=== PATIENT | female | born 1940 | race Caucasian/White ===

== ENCOUNTER 2017-06-13 13:35 | Outpatient (CLI) | payer MEDICARE, BC | END 2017-06-13 13:36 | disposition home or self-care (01) | LOC: BICMAMMO 13:35 | PROVIDERS: ATTEND Internal Medicine | DX: Z12.31 Encounter for screening mammogram for malignant neoplasm of breast (principal); Z80.3 Family history of malignant neoplasm of breast | CPT/HCPCS: 77063; 77067 ==

== ENCOUNTER 2018-07-12 10:39 | Outpatient (CLI) | payer MEDICARE, BC ==
--- NOTE | 2018-07-12 11:16 | MMO ---
Bilateral MAMMO Bilat Screen [facility]. CLINICAL HISTORY: Patient is 77 years old and is seen for screening. The patient has the following family history of breast cancer: paternal grandmother. The patient has no personal history of cancer. The patient has a history of right needle biopsy at age 30 - benign - mastatits. VIEWS: The views performed were: bilateral craniocaudal with tomosynthesis and bilateral mediolateral oblique with tomosynthesis. FILMS COMPARED: The present examination has been compared to prior imaging studies performed at [facility] on 11/29/2014, 02/05/2016 and 06/13/2017, and at [facility] on 12/14/2012. MAMMOGRAM FINDINGS: There are scattered fibroglandular densities. There are stable benign appearing calcifications seen in both breasts. There are also vascular calcifications. There are no suspicious masses, suspicious calcifications, or new areas of architectural distortion. IMPRESSION: THERE IS NO MAMMOGRAPHIC EVIDENCE OF MALIGNANCY. A ROUTINE FOLLOW-UP MAMMOGRAM IN 1 YEAR IS RECOMMENDED. THE RESULTS OF THIS EXAM WERE SENT TO THE PATIENT. ACR BI-RADS Category 2 - Benign finding MAMMOGRAPHY NOTE: 1. A negative mammogram report should not delay a biopsy if a dominant of clinically suspicious mass is present. 2. Approximately 10% to 15% of breast cancers are not detected by mammography. 3. Adenosis and dense breasts may obscure an underlying neoplasm.
== END 2018-07-12 10:40 | disposition home or self-care (01) ==
LOC: BICMAMMO 10:39
PROVIDERS: ATTEND Internal Medicine
DX: Z12.31 Encounter for screening mammogram for malignant neoplasm of breast (principal); Z80.3 Family history of malignant neoplasm of breast
CPT/HCPCS: 77063; 77067

== ENCOUNTER 2018-08-30 15:20 | Outpatient (CLI) | payer MEDICARE, BC ==
--- NOTE | 2018-08-30 15:59 | RAD ---
TWO VIEW CHEST: 08/30/18 INDICATION: Cough. The lungs are well aerated. There is density in the medial left lung base seen through the cardiac si lhouette on the frontal view. This is not appreciated on the lateral projection. However, I cannot ex clude left basilar infiltrate or atelectasis on the frontal projection at this location. This also ov erlies the descending aorta and may be artifactual. The lungs are otherwise clear. Vasculature normal. Heart size normal. IMPRESSION: Question density in the medial left lung base seen through the cardiac silhouette. This is not confir med on the lateral projection. Recommend short term follow-up. Alternatively a chest CT could be perf ormed if patient's clinical findings and symptoms are of concern. POS: OFF
== END 2018-08-30 15:21 | disposition home or self-care (01) ==
LOC: BICRAD 15:20
PROVIDERS: ATTEND Internal Medicine
DX: R05 Cough (principal)
CPT/HCPCS: 71046

== ENCOUNTER 2018-10-11 12:23 | Outpatient (CLI) | payer MEDICARE, BC ==
--- NOTE | 2018-10-11 13:31 | CT ---
CT CHEST WITH CONTRAST CLINICAL INDICATION: Productive cough for 3 months. Family history of cancer. Chest x-ray abnormality. COMPARISON: Chest x-ray on 08/30/2018 FINDINGS: Aorta: Vascular calcifications are seen, but the thoracic aorta is normal in caliber without evidence of an aortic dissection. Lungs: There is a pleural-based nodular density seen at the lateral aspect left upper lobe with great est dimension of 5 mm as measured on coronal images. No additional discrete pulmonary nodule or mass is seen. There are linear interstitial densities seen at the left lung base which may be related to mild chronic lung changes. There is no consolidation seen within the lungs bilaterally. Etiology for the density at the medial left lung base on chest x-ray is not evident on this exam, and findings may have been related to superimposition of structures on that exam or possibly related to infiltrate which is now resolved. Mediastinum: There is no evidence of lymphadenopathy. Thyroid gland: A 9 mm hypodense nodule is seen in the right lobe of the thyroid gland with additional tiny hypodense nodule in the thyroid isthmus. Osseous structures: A hemangioma is seen in a midthoracic vertebral body. There are mild degenerative changes in the thoracic spine. No additional lytic or sclerotic osseous lesion is seen. Chest wall: No abnormality visualized. Upper abdomen: Within normal limits for phase of imaging. IMPRESSION: 1. Nodular density with associated pleural thickening seen in the posterolateral left upper lobe. Thi s may be related to pleural and parenchymal scarring, but follow-up CT thorax in 6 months is recommended for further evaluation. 2. There is no abnormality seen in the left lung base to correspond to prior chest x-ray abnormality. No mass or pleural effusion is identified. 3. Linear densities seen at the left lung base which may be related to mild chronic interstitial lung changes. 4. Hypodense nodule right lobe of thyroid gland. Nonemergent thyroid ultrasound is recommended for fu rther evaluation.
== END 2018-10-11 12:24 | disposition home or self-care (01) ==
LOC: CT 12:23
PROVIDERS: ATTEND Internal Medicine Critical Care Medicine
DX: J45.909 Unspecified asthma, uncomplicated (principal); R05 Cough; R91.1 Solitary pulmonary nodule; J98.4 Other disorders of lung; J92.9 Pleural plaque without asbestos; E04.1 Nontoxic single thyroid nodule
CPT/HCPCS: 71260

== ENCOUNTER 2019-10-24 13:11 | Outpatient (CLI) | payer MEDICARE, BC ==
--- NOTE | 2019-10-24 13:31 | RAD ---
2 view chest: [10/24/2019] Comparison:08/30/2018 HISTORY: Shortness of breath FINDINGS: There are diffuse increased linear interstitial densities noted with pulmonary hyperinflati on suggesting COPD in the proper clinical setting. No pneumothorax or pleural fluid. No focal consolidation or alveolar edema. IMPRESSION: Chronic findings as detailed above. No focal consolidation or alveolar edema. Of note, prior CT examination of the chest performed 10/11/2018 demonstrated left upper lobe pulmonary nodular density. A follow-up chest CT would be required to further assess that finding.
== END 2019-10-24 13:12 | disposition home or self-care (01) ==
LOC: BICRAD 13:11
PROVIDERS: ATTEND Internal Medicine Critical Care Medicine
DX: R06.00 Dyspnea, unspecified (principal); J98.4 Other disorders of lung
CPT/HCPCS: 71046

== ENCOUNTER 2019-11-12 15:23 | Outpatient (CLI) | payer MEDICARE, BC ==
--- NOTE | 2019-11-12 16:03 | BD ---
EXAM: Bone densitometry using DEXA HISTORY: 78 yo female. Screening for postmenopausal osteoporosis FINDINGS: L1--bone mineral density 0.737 g/sq cm; T score -2.3 ; Z score 0.0 L2--bone mineral density 0.877 g/sq cm; T score -1.4 ; Z score 1.2 L3--bone mineral density 0.964 g/sq cm; T score -1.1 ; Z score 1.6 L4--bone mineral density 1.022 g/sq cm; T score -0.4 ; Z score 2.4 Total L1-L4--bone mineral density 0.912 g/sq cm; T score -1.2 ; Z score 1.4 Left femoral neck--bone mineral density0.568; T score -2.5 ; Z score -0.3 Total proximal left femur--bone mineral density 0.883; T score -0.5 ; Z score 1.5 IMPRESSION: Osteoporosis
--- NOTE | 2019-11-12 16:25 | MMO ---
Bilateral MAMMO Bilat Screen [facility]. CLINICAL HISTORY: Patient is 78 years old and is seen for screening. The patient has the following family history of breast cancer: paternal grandmother. The patient has no personal history of cancer. The patient has a history of right needle biopsy at age 30 - benign - mastatits. VIEWS: The views performed were: bilateral craniocaudal with tomosynthesis and bilateral mediolateral oblique with tomosynthesis. FILMS COMPARED: The present examination has been compared to prior imaging studies performed at [facility] on 11/29/2014, 02/05/2016, 06/13/2017 and 07/12/2018. This study has been interpreted with the assistance of computer-aided detection. MAMMOGRAM FINDINGS: There are scattered fibroglandular densities. Finding 1: There are stable benign appearing calcifications seen in both breasts. Finding 2: There are stable benign appearing densities seen in both breasts. There are no suspicious masses, suspicious calcifications, or new areas of architectural distortion. IMPRESSION: THERE IS NO MAMMOGRAPHIC EVIDENCE OF MALIGNANCY. A ROUTINE FOLLOW-UP MAMMOGRAM IN 1 YEAR IS RECOMMENDED. THE RESULTS OF THIS EXAM WERE SENT TO THE PATIENT. ACR BI-RADS Category 2 - Benign finding MAMMOGRAPHY NOTE: 1. A negative mammogram report should not delay a biopsy if a dominant of clinically suspicious mass is present. 2. Approximately 10% to 15% of breast cancers are not detected by mammography. 3. Adenosis and dense breasts may obscure an underlying neoplasm. Reported by: BRITTANY AARON MD Electonically Signed: [id number]
== END 2019-11-12 15:24 | disposition home or self-care (01) ==
LOC: BICMAMMO 15:23
PROVIDERS: ATTEND Internal Medicine
DX: Z12.31 Encounter for screening mammogram for malignant neoplasm of breast (principal); Z13.820 Encounter for screening for osteoporosis; M81.0 Age-related osteoporosis without current pathological fracture; Z78.0 Asymptomatic menopausal state; Z91.89 Other specified personal risk factors, not elsewhere classified
CPT/HCPCS: 77063; 77067; 77080

== ENCOUNTER 2019-12-04 12:47 | Outpatient (CLI) | payer MEDICARE, BC ==
--- NOTE | 2019-12-04 13:42 | RAD ---
EXAM: Thoracic spine 2 views: HISTORY: Age-related osteoporosis COMPARISON: None FINDINGS: No evidence for acute fracture or dislocation or significant acute process. No evidence for significant malalignment. Generalized disc osteophytosis and evidence for spondylosis. No evidence for a focal bone lesion. IMPRESSION: Thoracic spine spondylosis.
== END 2019-12-04 12:48 | disposition home or self-care (01) ==
LOC: BICRAD 12:47
PROVIDERS: ATTEND Internal Medicine Rheumatology
DX: M81.0 Age-related osteoporosis without current pathological fracture (principal); M53.84 Other specified dorsopathies, thoracic region; M47.814 Spondylosis without myelopathy or radiculopathy, thoracic region
CPT/HCPCS: 72070

== ENCOUNTER 2021-02-02 14:00 | Outpatient (CLI) | payer MEDICARE, BC | END 2021-02-02 14:01 | disposition home or self-care (01) | LOC: BICMAMMO 14:00 | PROVIDERS: ATTEND Internal Medicine | DX: Z12.31 Encounter for screening mammogram for malignant neoplasm of breast (principal); Z80.3 Family history of malignant neoplasm of breast; Z91.89 Other specified personal risk factors, not elsewhere classified | CPT/HCPCS: 77063; 77067 ==

== ENCOUNTER 2021-09-30 13:19 | Outpatient (CLI) | payer MEDICARE, BC | END 2021-09-30 13:20 | disposition home or self-care (01) | LOC: RAD 13:19 | PROVIDERS: ATTEND Internal Medicine Critical Care Medicine | DX: R06.00 Dyspnea, unspecified (principal) | CPT/HCPCS: 71046 ==

== ENCOUNTER 2022-01-15 13:00 | Outpatient (CLI) | payer MEDICARE, BC | END 2022-01-15 13:01 | disposition home or self-care (01) | LOC: BICMAMMO 13:00 | PROVIDERS: ATTEND Internal Medicine Rheumatology | DX: M81.0 Age-related osteoporosis without current pathological fracture (principal); M85.89 Other specified disorders of bone density and structure, multiple sites | CPT/HCPCS: 77080 ==